=== PATIENT | female | born 1985 | race Caucasian/White ===

== ENCOUNTER → 2016-09-08 | Outpatient (CLI) | payer BC ==
[~2016-09-08] MED LIST: ALDACTONE; PRILOSEC; PROZAC
--- NOTE | ~2016-09-08 | MR17 ---
[facility] A Service of [facility] & [facility] RADIOLOGY TEXT RESULTS PATIENT: DORETHA LENTZ LOCATION: [facility] : [birth year] UNIT #: [id number] AGE: [address]: Diego Betts MD SEX: F ORDER DR: [id number] [address] [address] [id number] MR#: [id number] Acc #: [id number] NAME: DORETHA LENTZ : 1985 SEX: F STUDY DATE/TIME: 09/08/2016 8:54 UNIT: [facility] ROOM: STUDY DESCRIPTION: MR Brain WWo Contrast Attending Physician: Diego Betts M.D. Referring Physician: Diego Betts M.D. Ordering Physician: Diego Betts M.D. Primary Care Physician: Troy Davila Jr., A.P.R.N. MRI CENTER REPORT This report is preliminary unless electronic signature is present. EXAM Brain and pituitary MRI with and without contrast. HISTORY Sphenoid opacification and headaches for 2-3 months with an abnormal head CT in June. PROCEDURE Routine brain and pituitary MRI with and without contrast. COMPARISON STUDIES Sinus CT dated 07/13/2016. FINDINGS There is abnormality in the sphenoid and suprasellar region. However, the remainder of the brain is normal. The brain is otherwise structurally normal and brain parenchymal signal is otherwise normal. Both internal carotid flow voids are patent despite the mass at the central skull base and the basilar artery is normal. There is no hydrocephalus. Bone marrow signal is normal. The dural venous sinuses appear normally patent. Postcontrast whole brain images again showed mass in the central skull base, see below, but no other abnormal enhancement or mass is seen. Some of the postcontrast images of the central skull base are motion degraded which may limit some details of the exam. There is a large intra and suprasellar mass. It measures about 3.5 cm in anterior-posterior dimension and about 3.5 cm in craniocaudal dimension. Mediolaterally, it measures maximally in the sphenoid about 5.3 cm but in the region of the sella and cavernous sinuses measures about 3.2 cm mediolaterally. The optic chiasm is elevated, stretched, and thinned by the mass though the optic cisternal optic nerves are otherwise unaffected and the optic tracks are unaffected. The mass clearly invades the cavernous sinus on the left STS. [facility] A Service of [facility] RADIOLOGY TEXT RESULTS PATIENT: DORETHA LENTZ LOCATION: [facility] : [birth year] UNIT #: [id number] AGE: [address]: Diego Betts MD SEX: F ORDER DR: and likely on the right but there is no narrowing of either carotid. The mass is isointense to brain on T2 and on T1 images and enhanced moderately strongly though slightly heterogeneously with contrast. Pituitary microadenoma and craniopharyngioma are the most likely possibilities though metastatic disease could be considered as well. There are no calcifications within the lesion. IMPRESSION Large intra and suprasellar enhancing soft tissue mass measuring roughly 3.5 cm AP x 3.5 craniocaudal, and at the level of the cavernous sinuses 3.2 cm transversely and in the sphenoid chambers 5.3 cm transversely. Pituitary microadenoma is favored though metastatic disease and craniopharyngioma are certainly possible, as well. 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 The mass erodes the posterior border of the sella and upper clivus. It elevated and slightly stretches the optic chiasm. No other lesions are seen and the brain is otherwise normal. Dictated by... Jamarcus Chew M.D. THIS IS AN ELECTRONICALLY VERIFIED REPORT Jamarcus Chew M.D. at 09/09/2016 3:56 PM TEV/saurav TD: 09/08/2016 17:21 JOB #: [id number] MRI CENTER REPORT Page 1 of 1
== END | disposition home or self-care (01) ==
LOC: SMRI 07:11
DX: R51 Headache (principal); J34.89 Other specified disorders of nose and nasal sinuses; M79.89 Other specified soft tissue disorders
CPT/HCPCS: 70553; A9581